=== PATIENT | female | born 1950 | race Caucasian/White ===

== ENCOUNTER → 2021-01-09 00:27 | Outpatient (CLI) | payer MEDICARE, OTHER, SELFPAY ==
[2021-01-09 17:47] LABS: SARS-CoV-2 RNA PCR Negative
== END ==
PROVIDERS: Visit Provider Urology
DX: Z01.812 Encounter for preprocedural laboratory examination (principal); Z20.822 Contact with and (suspected) exposure to COVID-19
CPT/HCPCS: C9803; U0003; U0005

== ENCOUNTER 2021-01-12 00:58 | Day surgery (SDC) | payer MEDICARE, OTHER, SELFPAY ==
[2020-12-29 14:15] VITALS: BMI 36.9
--- NOTE | 2021-01-03 09:39 | PM.IMHP ---
H&P: HPI History of Present Illness Date/Time: 01/03/21 09:39 Chief Complaint: ISD Narrative: Esther Casanova is a 70 year old female with ISD Review of Systems Review of Systems: All systems reviewed & are unremarkable except as noted in HPI and below PMFSH Past Medical History Medical History Anemia Cancer of ear Diabetes last a1c = 5.7 Hernia due to colostomy Urinary bladder disorder Surgical History Surgical History History of lumbar spinal fusion July 2020 History of repair of rotator cuff right 2009 and left 2012 Hx of tonsillectomy Social History Social History Smoking status: Never smoker Second hand tobacco smoke exposure: No Alcohol intake: never Substance use: never Substance use type: does not use Additional living arrangements comments: [facility] Gender identity (if verbalized by the patient): Female Spiritual care concerns: No Meds Home Medications and Allergies Home Medications Medication Instructions Recorded Confirmed Type calcium citrate 200 mg (950 mg) 200 mg PO DAILY 10/18/19 12/29/20 History tablet magnesium oxide 500 mg tablet 500 mg PO DAILY 10/18/19 12/29/20 History oxybutynin chloride 5 mg/5 mL oral 5 mg PO DAILY 10/18/19 12/29/20 History syrup pregabalin 75 mg capsule 150 mg PO BID cap 10/18/19 12/29/20 History tramadol 50 mg tablet 50 mg PO ONCE PRN 10/18/19 12/29/20 History pravastatin 20 mg tablet 20 mg PO HS tablet 11/20/19 12/29/20 History apixaban 2.5 mg tablet 5 mg PO BID 08/26/20 12/29/20 History ascorbic acid (vitamin C) [Vitamin 500 mg PO BID 12/29/20 12/29/20 History C] calcium carbonate-vitamin D3 1 tablet PO DAILY 12/29/20 12/29/20 History [Calcium + D] carvedilol 12.5 mg PO BID 12/29/20 12/29/20 History cranberry 400 mg PO DAILY 12/29/20 12/29/20 History docusate sodium [Colace] 50 mg PO BID 12/29/20 12/29/20 History ergocalciferol (vitamin D2) 1,250 mcg PO WEEKLY 12/29/20 12/29/20 History [Vitamin D2] flecainide 100 mg BID 12/29/20 12/29/20 History fluconazole 150 mg PO DAILY PRN 12/29/20 12/29/20 History melatonin 5 mg PO HS 12/29/20 12/29/20 History multivitamin [Multi-Vitamin] 1 tablet PO DAILY 12/29/20 12/29/20 History oxybutynin chloride 5 mg DAILY 12/29/20 12/29/20 History trimethoprim 100 mg HS 12/29/20 12/29/20 History vitamin [id number] B1 See Rx Instructions .ROUTE .COMPLEX 12/29/20 12/29/20 History Allergies Allergy/AdvReac Type Severity Reaction Status Date / Time aspirin Allergy Severe pt to have Verified 12/29/20 14:02 no aspirin because of gastric bypass CEPHALEXIN MONOHYDRATE Allergy Intermediate hives Uncoded 12/29/20 14:02 ELECTRODE ADHESIVE Allergy Mild RED AND Uncoded 12/29/20 14:02 ITCHING SKIN Exam Const: General: cooperative and healthy appearing HENMT: Head: normal to inspection Eyes: General: appearance normal, both eyes and all related structures Resp: Effort & Inspection: normal respiratory effort and able to speak in complete sentences Skin: General skin exam: normal color Neuro: General: patient oriented x3 Assessment and Plan Assessment and plan (1) Intrinsic sphincter deficiency: Code(s): N36.42 - Intrinsic sphincter deficiency (ISD) Status: Acute Assessment and Plan: bulking agent
--- NOTE | 2021-01-12 07:25 | WPDHPUPDATE1 ---
History and Physical Update Update Date/Time: 01/12/21 07:25 History and Physical has been reviewed, including an updated exam of the patient. There are NO changes in the patient's condition. Risks, benefits, and alternatives have been discussed and questions answered. Patient agrees to proceed with procedure.
[2021-01-12] MEDS: LACTATED RINGERS 1,000 ML 30 ML IV CONT ×2 (10:02→13:16)
[2021-01-12 10:09] VITALS: BP 136/65; PULSE 69; RESP 18; TEMP 36.6; O2SAT 99
--- NOTE | 2021-01-12 10:19 | WPDHPUPDATE1 ---
History and Physical Update Update Date/Time: 01/12/21 10:19 History and Physical has been reviewed, including an updated exam of the patient. There are NO changes in the patient's condition. Risks, benefits, and alternatives have been discussed and questions answered. Patient agrees to proceed with procedure.
--- NOTE | 2021-01-12 10:44 | WPDANESEPPF ---
Anes - Initial Pre Proc Eval Procedure: Operation Date: 01/12/21 11:30 Proposed Procedures p Cystoscopy with Macroplastique - Haja Zuniga MD Date/Time: 01/12/21 10:44 Surgeon: Haja Zuniga MD Pre Op Diagnosis: ISD Patient Data Age: 71 Gender: F Height: 5 ft 4 in Weight: 101 kg Last Vital Signs Temp 36.6 C 01/12/21 10:09 Pulse 69 01/12/21 10:09 Resp 18 01/12/21 10:09 BP 136/65 01/12/21 10:09 Pulse Ox 99 01/12/21 10:09 Allergies Allergy/AdvReac Type Severity Reaction Status Date / Time aspirin Allergy Severe pt to have Verified 01/12/21 09:27 no aspirin because of gastric bypass cephalexin Allergy Intermediate Hives Verified 01/12/21 09:27 ELECTRODE ADHESIVE Allergy Mild RED AND Uncoded 01/12/21 09:27 ITCHING SKIN Home Medications Medication Instructions Recorded Confirmed Type calcium citrate 200 mg (950 mg) 200 mg PO DAILY 10/18/19 01/12/21 History tablet magnesium oxide 500 mg tablet 500 mg PO DAILY 10/18/19 01/12/21 History pregabalin 75 mg capsule 150 mg PO BID cap 10/18/19 01/12/21 History tramadol 50 mg tablet 50 mg PO ONCE PRN 10/18/19 01/12/21 History pravastatin 20 mg tablet 20 mg PO HS tablet 11/20/19 01/12/21 History apixaban 2.5 mg tablet 5 mg PO BID 08/26/20 01/12/21 History ascorbic acid (vitamin C) [Vitamin 500 mg PO BID 12/29/20 01/12/21 History C] calcium carbonate-vitamin D3 1 tablet PO DAILY 12/29/20 01/12/21 History [Calcium + D] carvedilol 12.5 mg PO BID 12/29/20 01/12/21 History cranberry 400 mg PO DAILY 12/29/20 01/12/21 History docusate sodium [Colace] 50 mg PO BID 12/29/20 01/12/21 History ergocalciferol (vitamin D2) 1,250 mcg PO WEEKLY 12/29/20 01/07/21 History [Vitamin D2] flecainide 100 mg BID 12/29/20 01/12/21 History fluconazole 150 mg PO DAILY PRN 12/29/20 01/07/21 History melatonin 5 mg PO HS 12/29/20 01/12/21 History multivitamin [Multi-Vitamin] 1 tablet PO DAILY 12/29/20 01/12/21 History oxybutynin chloride 5 mg DAILY 12/29/20 01/12/21 History trimethoprim 100 mg HS 12/29/20 01/12/21 History vitamin [id number] B1 See Rx Instructions .ROUTE .COMPLEX 12/29/20 01/12/21 History Patient hx anesthesia problems: none Family hx anesthesia problems: none [facility] Past Medical History Medical History Afib Anemia Cancer of ear Diabetes last a1c = 5.7 Fibromyalgia Hernia due to colostomy Urinary bladder disorder Surgical History Surgical History History of lumbar spinal fusion July 2020 History of repair of rotator cuff right 2009 and left 2012 Hx of tonsillectomy Social History Social History Smoking status: Never smoker Second hand tobacco smoke exposure: No Alcohol intake: never Substance use: never Substance use type: does not use Living arrangements: with family Additional living arrangements comments: [facility] Gender identity (if verbalized by the patient): Female Spiritual care concerns: No Anes - Eval Final PreProcedure Day of Procedure 01/12/21 10:44 Patient weight: obese Heart: regular rate and rhythm Lungs: clear to auscultation Airway: Mallampati scale class 1 Neurological: other (alert) Last oral intake: >/= 8 hours ASA classification: III Emergent: no Anesthetic plan: proceed Anesthesia type and monitoring: general GIVS and standard monitoring Informed Consent: The patient's anesthetic plan and its attendant risks and benefits were discussed with the patient/family/POA. Questions were solicited and answers provided to the satisfaction of the patient/family/POA.
[2021-01-12] MEDS: levoFLOXacin 500 MG/D5W 100 ML 500 MG/100 ML BAG 100 MG IVPB (10:49)
[2021-01-12] MEDS: LIDOCAINE HCL 2% GEL UROJET 10 ML PKG MUCOUS MEM (11:10)
--- NOTE | 2021-01-12 11:13 | P.OP_ITS ---
Procedure Note - Detailed Date of procedure: 01/12/21 Pre-op diagnosis: ISD Intrinsic sphincter deficiency Post-op diagnosis: same Procedure performed: Cystoscopy with implantation of suburethral implant material [id number] Description of procedure: She understands the risks of bleeding, infection, need for repeat procedures, urinary retention. She understands the success rates between 75-85%. She understands it may need repeated over time. She agrees to proceed. She was correctly identified and informed consent was obtained. She was brought to the operating room. She was given mac anesthesia. She was placed in the dorsal lithotomy position. She was prepped and draped in a sterile fashion. A time-out performed. She has a cystocele to the introitus with mild loss to be apical support. Cystoscopy revealed no tumors in the bladder and an open urethra consistent with intrinsic sphincter deficiency. I injected the bulking agent into the urethra at the 10:00 a.m. to o'clock and 6 o'clock position. Th ere is excellent bulking effect. Her bladder was drained with a 12 [place] red rubber catheter. She was awakened and transferred to the PACU in stable condition. Implants: Macroplastique Anesthesia: MAC Surgeon: Haja Zuniga MD Drains: No Packing: No Pathology: none sent Complications: No immediate complications Condition: stable Disposition: PACU
[2021-01-12 11:20] VITALS: BP 100/58; PULSE 63; RESP 16; O2SAT 92
[2021-01-12 11:50] VITALS: BP 134/71; PULSE 60; RESP 18; O2SAT 94
[2021-01-12 12:20] VITALS: BP 160/88; PULSE 89; RESP 18
--- NOTE | 2021-01-12 12:41 | SUR.PHASEII ---
Up to bathroom but unable to void.
[2021-01-12 12:50] VITALS: BP 138/70; PULSE 61; RESP 16
[2021-01-12 13:15] VITALS: BP 154/74; PULSE 60; RESP 16
--- NOTE | 2021-01-12 13:44 | SUR.PHASEII ---
1340 pt has been in op recovery for over an hour, vss, no pain on roomair. pt nees to void before discharge. will discontinue vital signs.
--- NOTE | 2021-01-12 16:55 | SUR.PHASEII ---
1350 pt has been to the bathroom twice now and hasn't voided. spoke with dr corea and wants pt to be bladder scanned, and if bladder has >500ml in urine place a 14fr guerrero catheter in pt. 1415 pt bladder scannned and had a result of >900ml. dr corea made aware of finding. dr corea wants pt to go home with guerrero cath and she can remove it tomorrow around 12pm at home. any issues with voiding after please notifiy dr corea
--- NOTE | 2021-01-12 17:02 | SUR.PHASEII ---
1440 pt shown how to deflate balloo and remove guerrero catheter, all questions answered. any questions call dr corea office
== END 2021-01-12 15:15 | disposition home or self-care (01) ==
PROVIDERS: PCP Family Medicine; Visit Provider Urology
PROC: 3E0K8GC Introduction of Other Therapeutic Substance into Genitourinary Tract, Via Natural or Artificial Opening Endoscopic (ICD-10-PCS; CPT 51715; principal; 2021-01-12 11:30)
DX: N36.42 Intrinsic sphincter deficiency (ISD) (principal); I48.91 Unspecified atrial fibrillation; D64.9 Anemia, unspecified; E11.9 Type 2 diabetes mellitus without complications; M79.7 Fibromyalgia; Z79.01 Long term (current) use of anticoagulants; Z98.1 Arthrodesis status; E66.9 Obesity, unspecified; Z68.38 Body mass index [BMI] 38.0-38.9, adult
CPT/HCPCS: 51715; A9270; J1956; J2704; J3010; J7120; L8606